=== PATIENT | female | born 1955 | race Caucasian/White ===

== ENCOUNTER 2017-08-16 10:47 | Emergency (ER) | payer BC, OTHER ==
[~2017-08-16] VITALS: Ht 165.1 cm; Wt 66.7 kg
[2017-08-16] MEDS ORDERED: VALIUM5 MG PO (12:02)
[2017-08-16] MEDS ORDERED: NORCO 5-325 TA1 EACH PO (12:02)
[2017-08-16 12:18] VITALS: BP 150/76
== END 2017-08-16 12:22 | disposition home or self-care (01) ==
LOC: ER 10:47
DX: S39.012A Strain of muscle, fascia and tendon of lower back, initial encounter (principal); F10.99 Alcohol use, unspecified with unspecified alcohol-induced disorder; Z91.013 Allergy to seafood; Z91.041 Radiographic dye allergy status; X50.0XXA Overexertion from strenuous movement or load, initial encounter; Y93.54 Activity, bowling; Y92.89 Other specified places as the place of occurrence of the external cause; Y99.8 Other external cause status